=== PATIENT | female | born 1935 | race Caucasian/White ===

== ENCOUNTER 2023-08-12 15:25 | Emergency (ER) | payer MEDICARE, SELFPAY ==
[2023-08-12 15:27] VITALS: BP 138/80
--- NOTE | 2023-08-12 17:22 | ED.GENMED ---
History of Present Illness
General
Chief Complaint: Catheter/Tube Problem
Source: patient
Time Seen by Provider: 08/12/23 16:58
Travel History
Have you had any contact with someone who has COVID-19?: No
Do you have any symptoms of coronavirus? Fever > 100 degrees, chills, cough, shortness of breath, sore throat, loss of taste or smell, muscle aches, or headache?: No
History of Present Illness
History of Present Illness:
87-year-old female present emergency department for evaluation after she had Eng catheter placed at her urologist office yesterday, woke up this morning with no urine within the Eng bag and urine was leaking out of her urethra and on her close.
Patient has no complaints including abdominal pain, nausea, vomiting, fevers or any other concerns.
Past History
Past History
ED Past Medical History: Arrthythmia, CAD, HTN, Hypercholesterolemia, IDDM, Hypothyroidism and Other
ED Past Surgical History: Cardiac, Cholecystectomy, Gynecological, Orthopedic, Urological and Other
Patient has exhibited threatening behavior?: No
Social History
Tobacco: Former smoker
Alcohol: None
Drug: None
Personal:
Living: with family
Review of Systems
Review of Systems
All Other Systems: ROS reviewed and negative except as documented in HPI and ROS
Phy Exam
Physical Exam
Physical Exam:
GENERAL: Alert , in no apparent distress
EYE: conjunctiva clear
Head: Normocephalic atraumatic
NECK: Supple,
ENT: mmm.
LUNGS: no acute respiratory distress
NEUROLOGICAL: Alert and oriented
SKIN: Warm and dry, skin intact.
MUSCULOSKELETAL: well perfused.
PSYCH: Normal and appropriate interaction.
Scores
Heart Failure Risk
Heart Failure Risk Score: Not Applicable
Heart Score for Chest Pain Patients
STEMI patient?: Not applicable
Withdrawal Assessment of Alcohol
Withdrawal Assessment Completed?: Not applicable
Course
Orders/Labs/Results
Orders:
Orders
08/12/23 16:58
Eng Placement- Treatment ONCE
Reason for insertion: Outlet obstruction
Vital Signs
Initial and Last Documented VS:
Initial Vital Signs
Temp Pulse Resp BP Pulse Ox
97.6 F 59 16 138/80 97
08/12/23 15:27 08/12/23 15:27 08/12/23 15:27 08/12/23 15:27 08/12/23 15:27
Last Documented Vital Signs
Temp Pulse Resp BP Pulse Ox
97.6 F 59 16 138/80 97
08/12/23 15:27 08/12/23 15:27 08/12/23 15:27 08/12/23 15:27 08/12/23 15:27
MDM/Problems Addressed
Differential Diagnosis Includes:
Mechanical complication with Eng catheter. I do not have concern for UTI or infectious etiology
MDM/Problems Addressed:
87-year-old female present emergency ferment for evaluation after her Eng catheter was not working properly. We exchanged the Eng catheter without any difficulty. Patient is otherwise asymptomatic. She is stable for discharge and outpatient
follow-up as needed. I
*Pulse Oximetry
Patient hypoxic: no
*Critical Care Note
Total Time (30-74mins, 75-104mins- exclusive of procedures): Not Applicable
ED Attending Note
-
Portions of this chart may have been created with voice recognition software.� Occasional wrong word or��sound alike� substitutions may have occurred due to the inherent limitations of voice recognition software.
Discharge Plan
Departure
Patient Disposition: Home (Routine Discharge)
Date of Disposition: 08/12/23
Time of Disposition: 17:22
Patient with high blood pressure during this ER visit?: No
Discharge Problem:
Encounter for evaluation of Eng catheter
Instructions: How to Care for Your Eng Catheter
Prescriptions:
No Action
polyethylene glycol 3350 17 GRAMS powder in packet
17 grams PO DAILY
ascorbic acid (vitamin C) [Vitamin C] 500 MG tablet
500 mg PO DAILY
cholecalciferol (vitamin D3) 2,000 UNITS tablet
2,000 unit PO DAILY
L.acidoph, paracasei,B. lactis 1 EACH capsule
1 ea PO DAILY
levothyroxine 100 MCG tablet
100 mcg PO DAILY
sertraline 25 MG tablet
25 mg PO DAILY
ferrous sulfate [iron] 325 MG tablet
650 mg PO DAILY
furosemide 40 MG tablet
40 mg PO DAILY
cyanocobalamin (vitamin B-12) 2,000 MCG tablet
2,000 mcg PO DAILY
atorvastatin 40 MG tablet
40 mg PO HS
lorazepam 2 MG tablet
4 mg PO HS
timolol maleate 1 DROP drops
1 drp BOTH EYES BID
amlodipine 5 MG tablet
5 mg PO DAILY
nwshnbwi-lra-qzzt-FA-vit K-lut [Multivitamin Women 50 Plus] 1 EACH tablet
1 ea PO .Q48
carvedilol 6.25 MG tablet
3.125 mg PO BID
acetaminophen [Tylenol Extra Strength] 500 MG tablet
500 mg PO DAILYPRN PRN (Reason: mild pain)
coenzyme Q10 [Co Q-10] 200 MG capsule
200 mg PO DAILY
Urinary Support Complex
1 tab PO DAILY
nitroglycerin 1 EACH patch 24 hour
1 ea TD BID
insulin aspart U-100 [Novolog FlexPen U-100 Insulin] 300 UNITS/3 ML insulin pen
8 units SC DAILYPRN PRN (Reason: high blood sugar)
insulin glargine [Basaglar KwikPen U-100 Insulin] 100 UNIT/ML insulin pen
10 unit SQ HS
Potassium Citrate
99 mg PO DAILY
clopidogrel 75 MG tablet
75 mg PO DAILY Qty: 30 3RF
pantoprazole 40 MG tablet,delayed release (DR/EC)
40 mg PO DAILY Qty: 30 3RF
aspirin [Aspir-Low] 81 MG tablet,delayed release (DR/EC)
81 mg PO DAILY Qty: 0 0RF
phenazopyridine 200 MG tablet
200 mg PO TIDPRN PRN (Reason: bladder spasms) Qty: 10 0RF
cefdinir 300 MG capsule
300 mg PO BID Qty: 13 0RF
Interventions
Interventions:
*Risk Screen - Suicide Last Done: 08/12/23 17:25
*General Assessment Last Done: 08/12/23 17:25
*Neglect/Abuse Screening Last Done: 08/12/23 17:25
ED- Fall Risk Assessment Last Done: 08/12/23 17:25
*ED COVID-19 Vaccine History Last Done: 08/12/23 15:27
*Nursing Disposition Last Done: 08/12/23 17:25
CK-Zpfhoz-Hfdarhirbc Assessment Last Done: 08/12/23 17:24
ED-Female Genitourinary Assessment Last Done: 08/12/23 17:24
== END 2023-08-12 17:26 | disposition home or self-care (01) ==
LOC: EMR 15:25
PROVIDERS: EMERGENCY PHYSICIAN Emergency Medicine; FAMILY PHYSICIAN Family Medicine
DX: Z46.6 Encounter for fitting and adjustment of urinary device (principal); E11.9 Type 2 diabetes mellitus without complications; I25.10 Atherosclerotic heart disease of native coronary artery without angina pectoris; I10 Essential (primary) hypertension; E78.00 Pure hypercholesterolemia, unspecified; E03.9 Hypothyroidism, unspecified; Z87.891 Personal history of nicotine dependence
CPT/HCPCS: 99282; 51702

== ENCOUNTER → 2023-11-07 08:48 | Outpatient (REF) | payer MEDICARE, SELFPAY ==
[2023-11-07 09:49] LABS: % Basophils 1.2 % (0-2); % Eosinophils 6.7 % (0-6); % Immature Granulocytes 0.3 % (0-0.5); % Lymphocytes 20.4 % (20.5-51.1); % Monocytes 7.2 % (1.7-9.3); % Neutrophils 64.2 % (42.2-75.2); Absolute Basophils 0.1 10^3/uL (0-0.2); Absolute Eosinophils 0.5 10^3/uL (0-0.7); Absolute Lymphocytes 1.4 10^3/uL (1.2-3.4); Absolute Monocytes 0.5 10^3/uL (0.1-0.6); Absolute Neutrophils 4.3 10^3/uL (1.4-6.5); Hematocrit 37.4 % (37.0-47.0); Hemoglobin 12.8 g/dL (12.0-16.0); Mean Corp Hgb Conc. 34.2 g/dL (33.0-37.0); Mean Corpuscular Hgb 34.4 pg (27.0-31.0); Mean Corpuscular Volume 100.5 fL (81.0-99.0); Mean Platelet Volume 9.2 fL (7.4-10.4); Nucleated Red Blood Cells % 0 %; Platelet Count 191 10^3/uL (130-400); Red Blood Cell Count 3.72 10^6/uL (4.20-5.40); Red Cell Dist. Width 12.9 % (11.5-14.5); White Blood Cell Count 6.7 10^3/uL (4.8-10.8)
[2023-11-07 11:20] LABS: ALT (SGPT) 33 U/L (0-35); AST (SGOT) 44 U/L (14-36); Albumin 3.8 g/dl (3.5-5.0); Alkaline Phosphatase 120 U/L (38-126); Blood Urea Nitrogen 32 mg/dl (7-17); Calcium 9.4 mg/dl (8.4-10.2); Carbon Dioxide 32 mmol/L (22-30); Chloride 99 mmol/L (98-107); Glucose 103 mg/dl (70-99); Glycohemoglobin (HgbA1c) 7.2 % (4.0-5.6); HDL Cholesterol 49 mg/dl; LDL Cholesterol, Calculated 48 mg/dl; Sodium 138 mmol/L (135-145); Total Bilirubin 0.9 mg/dl (0.2-1.3); Total Cholesterol 133 mg/dl (50-199); Total Protein 6.7 g/dl (6.3-8.2); Triglyceride 184 mg/dl (10-149); Very Low Density Lipoprotein 36 mg/dl (0-30); eGFR 36.64
[2023-11-07 11:49] LABS: TSH 4.83 uIU/ml (0.47-4.68)
== END ==
LOC: REG 08:48
PROVIDERS: ATTENDING PHYSICIAN Family Medicine
DX: E11.22 Type 2 diabetes mellitus with diabetic chronic kidney disease (principal); N18.32 Chronic kidney disease, stage 3b; D63.8 Anemia in other chronic diseases classified elsewhere; E03.9 Hypothyroidism, unspecified
CPT/HCPCS: 36415; 80053; 80061; 83036; 84443; 85025

== ENCOUNTER → 2024-01-05 08:51 | Outpatient (REF) | payer MEDICARE, SELFPAY ==
[2024-01-05 10:35] LABS: Blood Urea Nitrogen 41 mg/dl (7-17); Calcium 9.2 mg/dl (8.4-10.2); Carbon Dioxide 32 mmol/L (22-30); Chloride 99 mmol/L (98-107); Glucose 122 mg/dl (70-99); Potassium 4.3 mmol/L (3.5-5.1); Sodium 138 mmol/L (135-145); eGFR 31.21
[2024-01-05 10:45] LABS: NT-proBNP 597 pg/ml
== END ==
LOC: REG 08:51
PROVIDERS: ATTENDING PHYSICIAN Internal Medicine Cardiovascular Disease; FAMILY PHYSICIAN Family Medicine
DX: I50.32 Chronic diastolic (congestive) heart failure (principal)
CPT/HCPCS: 36415; 80048; 83880

== ENCOUNTER → 2024-05-08 10:02 | Outpatient (REF) | payer MEDICARE, SELFPAY ==
[2024-05-08 12:12] LABS: ALT (SGPT) 27 U/L (0-35); AST (SGOT) 40 U/L (14-36); Albumin 3.5 g/dl (3.5-5.0); Alkaline Phosphatase 121 U/L (38-126); Direct Bilirubin 0.1 mg/dl (0.0-0.4); HDL Cholesterol 45 mg/dl; LDL Cholesterol, Calculated 51 mg/dl; Total Bilirubin 0.8 mg/dl (0.2-1.3); Total Cholesterol 130 mg/dl (50-199); Total Protein 6.3 g/dl (6.3-8.2); Triglyceride 170 mg/dl (10-149); Very Low Density Lipoprotein 34 mg/dl (0-30)
[2024-05-08 12:42] LABS: TSH 2.03 uIU/ml (0.47-4.68)
[2024-05-08 12:45] LABS: Microalbumin/creatinine Ratio 298.2 mg/g
[2024-05-08 12:58] LABS: Glycohemoglobin (HgbA1c) 6.7 % (4.0-5.6)
== END ==
LOC: REG 10:02
PROVIDERS: ATTENDING PHYSICIAN Family Medicine
DX: E11.22 Type 2 diabetes mellitus with diabetic chronic kidney disease (principal); E03.9 Hypothyroidism, unspecified
CPT/HCPCS: 36415; 80061; 80076; 82043; 82570; 83036; 84443

== ENCOUNTER 2024-07-09 18:22 | Inpatient (IN) | payer MEDICARE, SELFPAY ==
[2024-07-09] VITALS (12 sets, daily range): BP systolic 95–173; BP diastolic 41–84; BMI 43.1; BMI 42.1
[2024-07-09 13:05] LABS: % Basophils 0.9 % (0-2); % Eosinophils 4.9 % (0-6); % Immature Granulocytes 0.3 % (0-0.5); % Lymphocytes 21.1 % (20.5-51.1); % Monocytes 6.6 % (1.7-9.3); % Neutrophils 66.2 % (42.2-75.2); Absolute Basophils 0.1 10^3/uL (0-0.2); Absolute Eosinophils 0.3 10^3/uL (0-0.7); Absolute Lymphocytes 1.5 10^3/uL (1.2-3.4); Absolute Monocytes 0.5 10^3/uL (0.1-0.6); Absolute Neutrophils 4.6 10^3/uL (1.4-6.5); Hematocrit 36.2 % (37.0-47.0); Mean Corp Hgb Conc. 33.1 g/dL (33.0-37.0); Mean Corpuscular Hgb 33.8 pg (27.0-31.0); Mean Platelet Volume 9.3 fL (7.4-10.4); Nucleated Red Blood Cells % 0 %; Platelet Count 299 10^3/uL (130-400); Red Blood Cell Count 3.55 10^6/uL (4.20-5.40)
--- NOTE | 2024-07-09 13:05 | ED.GENMED ---
History of Present Illness
General
Chief Complaint: Weakness
Source: patient
Exam Limitations: none
Time Seen by Provider: 07/09/24 12:54
Nursing documentation reviewed up to this point in time: agreed with
History of Present Illness
History of Present Illness:
Patient is an 88-year-old female with history hypertension, hyperlipidemia, CHF, CAD s/p stents, indwelling Eng catheter presenting to the emergency department via EMS for evaluation of generalized weakness. Patient states she has been noticing
gradually increasing weakness for the past few days however today noted significant worsening. Patient states she was having difficulties getting out of bed and ambulating due to weakness. She also states she felt lightheadedness as if she might
pass out. Patient also notes increasing dyspnea when going up stairs and walking. Patient denies any associated chest pain, abdominal pain, fevers, lower extremity pain.
Of note�patient states she has been dealing with some constipation for which she took qdsj-rav-cglcjgq stool softeners leading to diarrhea over the past 2 days. However this seemed to resolve. No nausea or vomiting
Patient does have a history of CHF and takes 80 mg of Lasix daily. No recent changes in dosage.
Past History
Past History
ED Past Medical History: Arrthythmia, CAD, HTN, Hypercholesterolemia, IDDM, Hypothyroidism and Other
ED Past Surgical History: Cardiac, Cholecystectomy, Gynecological, Orthopedic, Urological and Other
Patient has exhibited threatening behavior?: No
Social History
Tobacco: Former smoker
Alcohol: None
Drug: None
Personal:
Living: with family
Review of Systems
Review of Systems
Allergies reviewed?: Yes
All Other Systems: ROS reviewed and negative except as documented in HPI and ROS
Phy Exam
Physical Exam
Physical Exam:
Vitals: Hypertensive, otherwise vital signs are stable. Afebrile
General: Patient is in no apparent distress.
Skin: Warm and dry, no rashes or lesions
Head: Normocephalic, atraumatic
Eyes: Sclera nonicteric. EOMs intact. No nystagmus.
Throat: Protecting airway
Neck: Normal ROM, no cervical spine tenderness, no meningismus. No JVD
Cardiac: Regular rate and rhythm, no murmurs.
Pulm: Normal respiratory effort, no wheezes, rales, rhonchi heard on exam. O2 saturation 97 on room
Abdomen: Abdomen soft. No abdominal tenderness.
Extremities: No evidence of cyanosis or edema. Palpable distal pulses bilaterally.
Neuro: AAOx3. Grossly intact.
Psychiatric: Normal affect.
Course
Orders/Labs/Results
Orders:
Orders
07/09/24 12:43
Electrocardiogram (*1) Urgent
Reason for Study: Chest Pain
EKG- Treatment ONCE
07/09/24 12:47
Complete Blood Count/With Diff Urgent
Comprehensive Metabolic Panel Urgent
NT-proBNP Urgent
Comment: ADD ON
Troponin I Urgent
07/09/24 12:53
Urinalysis Reflex To Culture Urgent
Date Specimen was Collected: 07/09/24
Time Specimen was Collected: 12:51
Urine Microscopic Reflex Cult Urgent
Urine Culture Urgent
VISHAL Source: U
Specimen Description:
Date Specimen was Collected: 07/09/24
Time Specimen was Collected: 12:51
07/09/24 13:03
Add On- LAB Urgent
Tests Added?: pro-bnp
07/09/24 13:04
CR Chest - 2 Views Urgent
Comment:
Reason For Exam: SOB
07/09/24 13:22
pacemaker [Interrogate Pacemaker- Treatment] ONCE
07/09/24 14:42
COVID-19 Antigen Urgent
Source: Nasal Swab
Influenza A+B Rapid Molecular Urgent
VISHAL Source: Nasal Swab
Specimen Description:
07/09/24 15:30
CefTRIAXone [Rocephin] 1,000 mg IV NOW STA
Furosemide [Lasix] 40 mg IV NOW STA
Potassium Chloride [KCl] 40 meq PO NOW STA
07/09/24 15:45
Electrocardiogram (*1) Urgent
Reason for Study: Shortness of Breath
EKG- Treatment ONCE
07/09/24 15:52
Troponin I Urgent
07/09/24 16:39
Admit/Transfer Patient As Directed
Co-Sign Provider:
Level of Care: Inpatient admission
Assign to:: Telemetry
Physician / Group: [email or web address]
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
Reason for Telemetry: Acute Heart Failure
Date to Stop Telemetry: 07/12/24
Time to Stop Telemetry: 11:00
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
Expected length of stay greater than two midnights?: Yes
ELOS- Estimated Length of Stay in days: 4
I certify the patient meets the requirements for IP care: Yes
07/09/24 16:48
Code Status As Directed
Resuscitation Status: Full Code
07/12/24 11:00
DC Protocol for Telemetry ONCE
Abnormal Lab Results
07/09/24 07/09/24
12:47 12:53
RBC 3.55 L 10^6/uL
(4.20-5.40)
Hct 36.2 L %
(37.0-47.0)
MCV 102.0 H fL
(81.0-99.0)
MCH 33.8 H pg
(27.0-31.0)
Potassium 3.4 L mmol/L
(3.5-5.1)
Carbon Dioxide 36 H mmol/L
(22-30)
BUN 57 H mg/dl
(7-17)
Creatinine 1.6 H mg/dL
(0.6-1.0)
Glucose 111 H mg/dl
(70-99)
AST 297 H U/L
(14-36)
ALT 208 H U/L
(0-35)
Alkaline Phosphatase 673 H U/L
(38-126)
Albumin 3.4 L g/dl
(3.5-5.0)
Ur Occult Blood Reflex 3+ A
(Negative)
Leukocyte Esterase Rfl 2+ A
(Negative)
Urine WBC (Reflex) >100 A /HPF
(0-5)
Urine Albumin (Reflex) 1+ A
(Neg - Trace)
07/09/24 12:47
07/09/24 12:47
Vital Signs
Initial and Last Documented VS:
Initial Vital Signs
Temp Pulse Resp BP Pulse Ox
98.7 F 65 18 160/68 97
07/09/24 12:36 07/09/24 12:36 07/09/24 12:36 07/09/24 12:36 07/09/24 12:36
Last Documented Vital Signs
Temp Pulse Resp BP Pulse Ox
98.7 F 66 16 141/53 96
07/09/24 12:36 07/09/24 20:00 07/09/24 20:00 07/09/24 20:00 07/09/24 20:00
MDM/Problems Addressed
Differential Diagnosis Includes:
Not limited to: Viral illness, acute dehydration, acute CHF exacerbation, UTI, cardiac arrhythmia, ACS
MDM/Problems Addressed:
88-year-old female presenting with significant weakness. Also with worsening dyspnea on exertion. No fevers, chest pain, abdominal pain. No recent weight gain. Patient is mildly hypertensive, otherwise stable vital signs. She is not hypoxic.
Physical exam as above. Differential broad although possible viral illness versus acute CHF exacerbation versus UTI given chronic indwelling Eng catheter. Also possibly acute dehydration secondary to recent diarrhea. Lower suspicion for ACS.
Will check basic lab, troponin, proBNP, urinalysis. Will obtain viral test x-ray. Will interrogate pacemaker. Anticipate admission.
Update: Labs reviewed. Chronic renal insufficiency noted�which appears at patient's baseline. Transaminitis noted�possibly secondary to fluid overload. BNP of 1110. Troponin negative. Urine with greater than 100 WBCs and 2+ leukocyte
esterase�concern for UTI. Viral swabs negative. EKG shows paced rhythm without any acute ischemic changes. Chest x-ray reviewed by me without any significant pulmonary edema or acute findings. Given patient's significant weakness and UTI�will
require admission. Possible colonization given indwelling Eng catheter although will start empirically on Rocephin pending culture data. Given symptomatic dyspnea and elevated BNP�will give 40 IV Lasix. Patient will be admitted to hospitalist
for further management-accepted in stable condition. Case discussed with attending physician.
Chronic conditions affecting care:
Hypertension, CHF, neurogenic bladder with chronic indwelling Eng catheter
Acute Exacerbation and/or Progression of Chronic Illness:
Acutely hypertensive
*Radiology
Radiology exam reviewed: preliminary read by ED provider (Chest x-ray reviewed by me-no significant pulmonary edema, pneumonia, or pneumothorax)
*Pulse Oximetry
Patient hypoxic: no
*EKG
Interpreted by ED Provider?: Yes
EKG Intrepretation Date: 07/09/24
Interpretation: abnormal
Comparison EKG: changes noted
Heart Rate: 64
Rate: normal
Rhythm: other (Atrial paced)
[place]: left axis deviation
Interval: normal interval
QRS Pattern: normal QRS
Ischemia: non-specific ST changes
*[employer] Interpretation
Rate: normal
Interpretation: normal
Heart Rate: 65
Rhythm: sinus
*Critical Care Note
Total Time (30-74mins, 75-104mins- exclusive of procedures): Not Applicable
Patient Management
Discussion with other providers: Hospitalist
Escalation/DeEscalation of care consider admission/obs:
Admit for generalized weakness secondary to likely UTI versus CHF exacerbation
ED Attending Note
-
Portions of this chart may have been created with voice recognition software.� Occasional wrong word or��sound alike� substitutions may have occurred due to the inherent limitations of voice recognition software.
Discharge Plan
Departure
Patient Disposition: Admit
Date of Disposition: 07/09/24
Time of Disposition: 15:34
Presentation/result/management discussed w/ accepting MD/DO: Hospitalist
Discharge Problem:
Weakness, Acute UTI, Dyspnea on exertion
Interventions
Interventions:
*Risk Screen - Suicide Last Done: 07/09/24 12:36
*General Assessment Last Done: 07/09/24 12:36
*Neglect/Abuse Screening Last Done: 07/09/24 12:36
ED- Fall Risk Assessment Last Done: 07/09/24 12:44
*ED COVID-19 Vaccine History Last Done: 07/09/24 12:44
ED- Cardiac Assessment Last Done: 07/09/24 12:44
ED- Neurological Assessment Last Done: 07/09/24 12:44
ED- Pulmonary Assessment Last Done: 07/09/24 12:44
[2024-07-09 13:11] LABS: Urine Albumin 1+ (Neg - Trace); Urine Bilirubin Negative (Negative); Urine Character Very Cloudy (Clear); Urine Color Yellow; Urine Glucose Negative (Negative); Urine Ketone Negative (Negative); Urine Leukocyte 2+ (Negative); Urine Nitrite Negative (Negative); Urine Occult Blood 3+ (Negative); Urine Urobilinogen Negative (Neg - 1+); Urine pH 6.5 (5.0-9.0)
[2024-07-09 13:16] LABS: ALT (SGPT) 208 U/L (0-35); AST (SGOT) 297 U/L (14-36); Albumin 3.4 g/dl (3.5-5.0); Alkaline Phosphatase 673 U/L (38-126); Blood Urea Nitrogen 57 mg/dl (7-17); Calcium 8.8 mg/dl (8.4-10.2); Carbon Dioxide 36 mmol/L (22-30); Chloride 99 mmol/L (98-107); Estimated Creatinine Clearance 27 ml/min; Glucose 111 mg/dl (70-99); Potassium 3.4 mmol/L (3.5-5.1); Sodium 141 mmol/L (135-145); Total Bilirubin 1.3 mg/dl (0.2-1.3); Total Protein 6.6 g/dl (6.3-8.2); eGFR 31.21
[2024-07-09 13:26] LABS: Troponin I 0.024 ng/ml
[2024-07-09 13:37] LABS: Urine White Cell >100 /HPF (0-5)
[2024-07-09 13:59] LABS: NT-proBNP 1110 pg/ml
[2024-07-09 15:20] LABS: COVID-19 Antigen Negative (Negative)
[2024-07-09] MEDS: KCL 40 MEQ PO (15:53)
[2024-07-09] MEDS: LASIX 40 MG IV (15:55)
[2024-07-09] MEDS: ROCEPHIN 1000 MG IV (15:58)
--- NOTE | 2024-07-09 16:21 | HPS.HSE ---
Family Physician
-
Family Physician: Amairani Ramírez
Chief Complaint
-
Generalized weakness unable to complete ADLs at home
History of Present Illness
88F HX hypertension, hyperlipidemia, CHF, CAD s/p stents, indwelling Gilbert catheter seen at ER
- evaluation of generalized progressive weakness
- she was having difficulties getting out of bed and ambulating due to weakness
- felt lightheadedness as if she might pass out.
- increasing dyspnea when going up stairs and walking.
- HX CHF and takes 80 mg of Lasix daily. No recent changes in dosage.
Of note: some constipation for which she took xnka-jla-epwaiid stool softeners leading to diarrhea over the past 2 days. However this seemed to resolve. No nausea or vomiting
ROS:
- Patient denies any associated chest pain, abdominal pain, fevers, lower extremity pain.
Medical History
Past Medical History
Past Medical History: Reports CAD, CHF, HTN, Hypercholesterolemia, Hypothyroidism, IDDM and Psychiatric (depression )
Past Surgical History: Reports Other
Additional Past Surgical History:
Cardiac, Cholecystectomy, Gynecological, Orthopedic, Urological and Other
Social History
Tobacco: Former Smoker
Alcohol: None
Personal:
Living: With Family
Family History
Family History: Not pertinent
Allergies / Home Medications
Allergies reflects when Allergies were last updated in [facility].
Home Medications with original date entered in [facility]
Allergy/Medication List:
Allergies
Allergy/AdvReac Type Severity Reaction Status Date / Time
Penicillins Allergy Unknown Verified 06/03/21 18:51
venom-honey bee Allergy Swelling Verified 06/03/21 18:51
[bee venom (honey bee)]
Home Medications
ascorbic acid (vitamin C) 500 mg tablet (Vitamin C) 500 mg PO DAILY Supplement 04/30/15
cholecalciferol (vitamin D3) 50 mcg (2,000 unit) tablet 2,000 unit PO DAILY Supplement 04/30/15
polyethylene glycol 3350 17 gram oral powder packet 17 grams PO DAILYPRN PRN constipation 04/30/15
ferrous sulfate 325 mg (65 mg iron) tablet (iron) 650 mg PO DAILY Supplement 12/10/15
acetaminophen 500 mg tablet (Tylenol Extra Strength) 500 mg PO DAILYPRN PRN mild pain 09/25/19
coenzyme Q10 200 mg capsule (Co Q-10) 200 mg PO DAILY Supplement 11/14/19
insulin aspart U-100 100 unit/mL (3 mL) subcutaneous pen (Novolog FlexPen U-100 Insulin aspart) 0 sliding scale dose SC AC 11/14/19
insulin glargine 100 unit/mL (3 mL) subcutaneous pen (Basaglar KwikPen U-100 Insulin) 14 unit SQ HS Diabetes 11/14/19
potassium 99 mg tablet 99 mg PO DAILY Supplement ##0 11/14/19
Lactobac no.2-Bifidobac no.1-S. thermo 112.5 billion cell capsule (Visbiome) 1 cap PO DAILY 07/09/24
aspirin 81 mg tablet,delayed release 81 mg PO DAILY 07/09/24
atorvastatin 80 mg tablet 80 mg PO HS 07/09/24
cyanocobalamin (vitamin B-12) 1,000 mcg tablet 1,000 mcg PO DAILY 07/09/24
docusate sodium 100 mg capsule (Colace) 100 mg PO DAILYPRN PRN constipation 07/09/24
furosemide 80 mg tablet 80 mg PO HS 07/09/24
levothyroxine 125 mcg tablet 125 mcg PO DAILY 07/09/24
magnesium oxide 300 mg PO HS 07/09/24
melatonin 3 mg tablet 3 mg PO HS 07/09/24
metoprolol tartrate 25 mg tablet 25 mg PO BID 07/09/24
pantoprazole 40 mg tablet,delayed release 40 mg PO HS 07/09/24
sertraline 50 mg tablet 50 mg PO DAILY 07/09/24
therapeutic multivitamin 1 tab PO DAILY 07/09/24
timolol 0.5 % eye drops 1 drp BOTH EYES BID 07/09/24
vitamins A,C,P-pxec-eefxfg 4,296 mcg-226 mg-90 mg capsule (PreserVision AREDS) 1 cap PO BID 07/09/24
Review of Systems
-
EENT: Reports No Symptoms
Respiratory: Reports See HPI
Cardiac: Reports No Symptoms
Abdomen/GI: Reports No Symptoms
: Reports See HPI
Musculoskeletal: Reports No Symptoms
Skin: Reports No Symptoms
Neurological: Reports No Symptoms
Endocrine: Reports No Symptoms
Hematologic/Lymphatic: Reports No Symptoms
Psych: Reports No Symptoms
Physical Exam
Vital Signs
Vital Signs
Temp Pulse Resp BP Pulse Ox
98.7 F 66 15 139/52 99
07/09/24 12:36 07/09/24 16:00 07/09/24 16:00 07/09/24 16:00 07/09/24 15:49
Physical Exam
General: No Apparent Distress and Other (hypertensive )
HEENT: NormoCephalic, Moist mucous membranes and Atraumatic
Respiratory: Clear
Cardiac: S1/S2
GI: Soft, Non Tender, Non Distended and Normal Bowel Sounds
Rectal: Deferred by Provider
Musculoskeletal: No Clubbing, No Cyanosis and No Edema
Skin: No Rash
Neuro: Nonfocal/grossly intact
Laboratory Results
-
07/09/24 12:47
07/09/24 12:47
Laboratory Results
Total Bilirubin 1.3 mg/dl (0.2-1.3) 07/09/24 12:47
AST 297 U/L (14-36) H 07/09/24 12:47
ALT 208 U/L (0-35) H 07/09/24 12:47
Alkaline Phosphatase 673 U/L (38-126) H 07/09/24 12:47
Troponin I 0.024 ng/ml 07/09/24 12:47
Data Reviewed
-
Diagnostic Radiology: Report Reviewed by me
Medical Tests (Nuc Med, Echo, EKG etc): Report Reviewed by me
Lab Data: Labs Reviewed by me
Impression/Plan
-
Data
Laboratory Tests
01/05/24 07/09/24 07/09/24
09:16 12:47 12:53
Potassium 3.4 L
Carbon Dioxide 36 H
BUN 57 H
Creatinine 1.6 H 1.6 H
eGFR 31.21 31.21
AST 297 H
ALT 208 H
Alkaline Phosphatase 673 H
Xry-J-Emhnoveasmx Pept 597 1110
Urine Clarity Very cloudy
Leukocyte Esterase Rfl 2+ A
Urine WBC (Reflex) >100 A
CXR: NAD
06/03/22 TTE
1. Left ventricle: Normal size and function with mild concentric LVH. No
regional wall motion abnormalities. EF 55-60%.
2. Right ventricle: Normal
3. Atria: Normal
4. Mitral valve: Trace mitral regurgitation
5. Aortic valve: A 23 mm sapient valve is in the aortic position with a mean
gradient of 11 mmHg. Mild paravalvular aortic insufficiency
6. Tricuspid valve: Mild tricuspid regurgitation. Estimated pulmonary artery
systolic pressures are 39 mmHg
7. When compared to the most recent echocardiogram from 03/26/2020 there has
been no significant change
EKG
Atrial-paced rhythm with prolonged AV conduction
LEFT AXIS DEVIATION
POSSIBLE ANTERIOR INFARCT (CITED ON OR BEFORE 02-DEC-2019)
ABNORMAL ECG
WHEN COMPARED WITH ECG OF 09-JUL-2024 12:49,
NO SIGNIFICANT CHANGE WAS FOUND
NO PRIOR hospitalist admission:
ASSESSMENT & PLAN
CAUTI
+ indwelling gilbert with UA concerning for infection.
- agree with IV CFTZ
- f/u UCx
Acute HF , HX LVEF 55-60%.
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
- IV Lasix 40 daily
- c/w Carvedilol
- daily IOs , wt
- daily BMP
NICKY ? cardiorenal syndrome plus UTI
HX CKD 3b
- f/u Cr with diuresis
Prx AF
- Atrial-paced rhythm with prolonged AV conduction
- c/w ASA
- c/.w Carvedilol
CAD,
HLD
- on Atorvastatin and ASA
essential HTN
- on Carvedilol
IDDM
- c/w Lantus
- add ISS low
Hypothyroid
- on LT4
HX depression
- c/w Sertraline
Depression
- c/w Sertraline
-c/w
Morbid obesity
DVT Px: SQH
Code: Full
IP TLM
[2024-07-09 16:46] LABS: Troponin I 0.027 ng/ml
[2024-07-09 21:52] LABS: Glucose - Point of Care 65 mg/dl (70-99)
[2024-07-09] MEDS: HEPARIN 5000 UNITS SC (21:54)
[2024-07-09] MEDS: TYLENOL 500 MG PO (21:55)
[2024-07-09] MEDS: MELATONIN 3 MG PO (21:56)
[2024-07-09] MEDS: PROTONIX 40 MG PO (21:56)
[2024-07-09] MEDS: LIPITOR 80 MG PO (21:56)
[2024-07-09] MEDS: LOPRESSOR 25 MG PO (21:58)
[2024-07-09 22:20] LABS: Glucose - Point of Care 98 mg/dl (70-99)
[2024-07-09] MEDS: LANTUS SC (23:00)
--- NOTE | 2024-07-09 23:08 | PTCARENOTE ---
Patient arrived to unit via stretcher with dx of Cauti,Acute on Chronic HFpEF, NICKY on CKD. Patient AAOX3. Pleasant and cooperative with care. Eng cath in place with cloudy yellow urine. Bed alarm applied. BS 65, Juice and crackers given. Patient
denies any symptoms. BS rechecked about 15 minutes later with result of 98. Patient refused HS lantus. Call barillas within reach. Oriented to unit. Patient able to turn self in bed. Patient educated on turning frequently to prevent pressure sores.
[2024-07-10] VITALS (8 sets, daily range): BP systolic 119–175; BP diastolic 45–69; PULSE 68–75; BMI 43.0
[2024-07-10 03:15] LABS: Glucose - Point of Care 73 mg/dl (70-99)
[2024-07-10] MEDS: SYNTHROID 125 MCG PO (06:13)
[2024-07-10 07:19] LABS: Glucose - Point of Care 121 mg/dl (70-99)
[2024-07-10] MEDS: NOVOLOG FLEXPEN-LOW RESISTANCE SC (07:28)
[2024-07-10] MEDS: HEPARIN 5000 UNITS SC ×2 (08:09→20:51)
[2024-07-10] MEDS: ZOLOFT 50 MG PO (08:10)
[2024-07-10] MEDS: ASPIR LOW (ENTERIC COATED) 81 MG PO (08:10)
[2024-07-10 08:11] LABS: Hematocrit 35.5 % (37.0-47.0); Mean Corp Hgb Conc. 33.8 g/dL (33.0-37.0); Mean Corpuscular Hgb 34.2 pg (27.0-31.0); Mean Corpuscular Volume 101.1 fL (81.0-99.0); Mean Platelet Volume 9.5 fL (7.4-10.4); Platelet Count 290 10^3/uL (130-400); Red Blood Cell Count 3.51 10^6/uL (4.20-5.40); Red Cell Dist. Width 14.3 % (11.5-14.5); White Blood Cell Count 10.3 10^3/uL (4.8-10.8)
[2024-07-10] MEDS: LOPRESSOR 25 MG PO ×2 (08:11→20:51)
[2024-07-10] MEDS: DESENEX/MITRAZOL/ZEASORB 1 APPLIC TOPICAL ×2 (08:12→20:50)
[2024-07-10] MEDS: LASIX 40 MG IV (08:12)
[2024-07-10 08:39] LABS: ALT (SGPT) 256 U/L (0-35); AST (SGOT) 501 U/L (14-36); Albumin 3.2 g/dl (3.5-5.0); Alkaline Phosphatase 744 U/L (38-126); Blood Urea Nitrogen 51 mg/dl (7-17); Calcium 8.8 mg/dl (8.4-10.2); Carbon Dioxide 34 mmol/L (22-30); Chloride 98 mmol/L (98-107); Estimated Creatinine Clearance 27 ml/min; Glucose 125 mg/dl (70-99); Potassium 3.7 mmol/L (3.5-5.1); Sodium 141 mmol/L (135-145); Total Bilirubin 1.6 mg/dl (0.2-1.3); Total Protein 6.3 g/dl (6.3-8.2); eGFR 31.21
[2024-07-10 11:55] LABS: Glucose - Point of Care 155 mg/dl (70-99)
[2024-07-10] MEDS: NOVOLOG FLEXPEN-LOW RESISTANCE 1 UNITS SC (13:19)
--- NOTE | 2024-07-10 14:18 | CM ---
CM reviewed chart, patient seen bedside. TT to Hospitalist for PT orders. Patient reports she resides with her daughter in a two story home, two steps to enter, 13 steps to second floor. Patient reports walker at home, denies VN, reports history of
[facility] in past. Patient confirms PCP Amairani Ramírez, pharmacy [facility], confirms prescription coverage. CM will follow for all discharge planning needs.
Plan; home with VN vs SNF, watch for PT evals.
[2024-07-10] MEDS: STERILE WATER FOR INJECTION 10 ML IV (15:52)
[2024-07-10] MEDS: ROCEPHIN 1000 MG IV (15:53)
[2024-07-10 16:32] LABS: Glucose - Point of Care 212 mg/dl (70-99)
[2024-07-10] MEDS: NOVOLOG FLEXPEN-LOW RESISTANCE 2 UNITS SC (16:37)
--- NOTE | 2024-07-10 18:00 | W.PN.HOSP.TC ---
Today's Communication/Plan
-
await Ur C&S
Assessment / Plan
Assessment / Plan
06/03/22 TTE
1. Left ventricle: Normal size and function with mild concentric LVH. No
regional wall motion abnormalities. EF 55-60%.
2. Right ventricle: Normal
3. Atria: Normal
4. Mitral valve: Trace mitral regurgitation
5. Aortic valve: A 23 mm sapient valve is in the aortic position with a mean
gradient of 11 mmHg. Mild paravalvular aortic insufficiency
6. Tricuspid valve: Mild tricuspid regurgitation. Estimated pulmonary artery
systolic pressures are 39 mmHg
7. When compared to the most recent echocardiogram from 03/26/2020 there has
been no significant change
EKG
Atrial-paced rhythm with prolonged AV conduction
LEFT AXIS DEVIATION
POSSIBLE ANTERIOR INFARCT (CITED ON OR BEFORE 02-DEC-2019)
ABNORMAL ECG
WHEN COMPARED WITH ECG OF 09-JUL-2024 12:49,
NO SIGNIFICANT CHANGE WAS FOUND
CXR: NAD
NO PRIOR hospitalist admission:
ASSESSMENT & PLAN
CAUTI
+ indwelling gilbert with UA concerning for infection.
- agree with IV CFTZ
- f/u UCx
GmNeg Bacilli
Acute HF , HX LVEF 55-60%.
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
- IV Lasix 40 daily
- c/w Carvedilol
- daily IOs , wt
- daily BMP
NICKY ? cardiorenal syndrome plus UTI
HX CKD 3b
- f/u Cr with diuresis
Prx AF
- Atrial-paced rhythm with prolonged AV conduction
- c/w ASA
- c/.w Carvedilol
elevated LFT's
?due to passive congestion
will follow
CAD,
HLD
- on Atorvastatin and ASA
essential HTN
- on Carvedilol
IDDM
- c/w Lantus
- add ISS low
a1c 6.7% on 05/08/24
Hypothyroid
- on LT4
HX depression
- c/w Sertraline
Morbid obesity
DVT Px: SQH
Code: Full
IP TLM
Anticipated Discharge: > 48 hours
Subjective/Interval History
-
Date of Service: July 10, 2024
Awake, alert, feeling better
Objective Data
-
Labs:
Laboratory Results
07/10/24
07:12
WBC 10.3
Hgb 12.0
Hct 35.5 L
Plt Count 290
Sodium 141
Potassium 3.7
Chloride 98
Carbon Dioxide 34 H
BUN 51 H
Creatinine 1.6 H
Glucose 125 H
Calcium 8.8
Total Bilirubin 1.6 H
AST 501 H*
ALT 256 H
Alkaline Phosphatase 744 H
Vital Signs:
Vital Signs
Temp Pulse Resp BP Pulse Ox
99.4 F 67 22 119/58 96
07/10/24 15:00 07/10/24 15:00 07/10/24 15:00 07/10/24 15:00 07/10/24 15:00
I&O
07/09/24 07/10/24 07/11/24
06:59 06:59 06:59
Output Total 850 / 850
Balance -850 / -850
Review of Systems
-
History Source: Patient and Coordinated Provider
Constitutional: Denies Fever
EENT: Reports No Symptoms Reported
Respiratory: Reports No Symptoms
Cardiac: Reports No Symptoms
Abdomen/GI: Reports No Symptoms
Genitourinary: Reports UTI and Other (chronic gilbert)
Physical Exam
-
General: Well Developed, Well Nourished, No Apparent Distress and Morbidly Obese
HEENT: Normocephalic, Atraumatic and Moist Mucous Membranes
Respiratory: Clear to Auscultation; Negative Wheezes, Rales or Rhonchi
Cardiac: Regular Rhythm and S1/S2
GI: Soft, Nontender and Nondistended
Musculoskeletal: No Clubbing, No Cyanosis and No Edema
[2024-07-10] MEDS: PROTONIX 40 MG PO (20:52)
[2024-07-10] MEDS: LIPITOR 80 MG PO (20:52)
[2024-07-10] MEDS: MELATONIN 3 MG PO (20:58)
[2024-07-10 21:59] LABS: Glucose - Point of Care 143 mg/dl (70-99)
[2024-07-10] MEDS: LANTUS 0.14 UNITS SC (22:13)
[2024-07-11 03:27] VITALS: BP 130/65
[2024-07-11] MEDS: SYNTHROID 125 MCG PO (05:11)
[2024-07-11 06:00] VITALS: BMI 43.6
[2024-07-11] MEDS: HEPARIN 5000 UNITS SC ×2 (07:55→20:42)
[2024-07-11] MEDS: ASPIR LOW (ENTERIC COATED) 81 MG PO (07:55)
[2024-07-11] MEDS: LOPRESSOR 25 MG PO ×2 (08:00→20:43)
[2024-07-11] MEDS: DESENEX/MITRAZOL/ZEASORB 1 APPLIC TOPICAL ×2 (08:01→20:41)
[2024-07-11] MEDS: LASIX 40 MG IV (08:01)
[2024-07-11] MEDS: ZOLOFT 50 MG PO (08:04)
[2024-07-11] MEDS: NOVOLOG FLEXPEN-LOW RESISTANCE SC ×3 (08:18→17:17)
[2024-07-11 08:21] LABS: Glucose - Point of Care 95 mg/dl (70-99)
[2024-07-11 08:37] LABS: % Basophils 0.8 % (0-2); % Eosinophils 5.1 % (0-6); % Immature Granulocytes 0.4 % (0-0.5); % Lymphocytes 18.5 % (20.5-51.1); % Monocytes 7.3 % (1.7-9.3); % Neutrophils 67.9 % (42.2-75.2); Absolute Basophils 0.1 10^3/uL (0-0.2); Absolute Eosinophils 0.4 10^3/uL (0-0.7); Absolute Lymphocytes 1.5 10^3/uL (1.2-3.4); Absolute Monocytes 0.6 10^3/uL (0.1-0.6); Absolute Neutrophils 5.4 10^3/uL (1.4-6.5); Hemoglobin 10.9 g/dL (12.0-16.0); Mean Corpuscular Hgb 33.2 pg (27.0-31.0); Mean Corpuscular Volume 100.6 fL (81.0-99.0); Mean Platelet Volume 9.6 fL (7.4-10.4); Nucleated Red Blood Cells % 0 %; Platelet Count 270 10^3/uL (130-400); Red Blood Cell Count 3.28 10^6/uL (4.20-5.40); White Blood Cell Count 7.9 10^3/uL (4.8-10.8)
[2024-07-11 09:14] LABS: Albumin 3.1 g/dl (3.5-5.0); Alkaline Phosphatase 699 U/L (38-126); Blood Urea Nitrogen 49 mg/dl (7-17); Calcium 8.5 mg/dl (8.4-10.2); Carbon Dioxide 34 mmol/L (22-30); Chloride 96 mmol/L (98-107); Estimated Creatinine Clearance 27 ml/min; Glucose 90 mg/dl (70-99); Potassium 3.7 mmol/L (3.5-5.1); Sodium 138 mmol/L (135-145); Total Bilirubin 1.5 mg/dl (0.2-1.3); Total Protein 6.2 g/dl (6.3-8.2); eGFR 31.21
[2024-07-11 09:46] LABS: ALT (SGPT) 732 U/L (0-35); AST (SGOT) 1148 U/L (14-36)
[2024-07-11 11:46] LABS: Glucose - Point of Care 126 mg/dl (70-99)
[2024-07-11 12:10] VITALS: BP 157/70
--- NOTE | 2024-07-11 14:26 | CM ---
CM reviewed chart, patient seen bedside, discussed PT recommendation of SNF. Patient is not agreeable to rehab, reports she would like to do outpatient PT/OT. CM discussed VN referral, patient not agreeable to have VN in home. CM offered to discuss
with patients daughter, patient reports daughter should be in to visit, CM will return to discuss recommendations. CM will continue to follow for all discharge planning needs.
Plan; PT rec SNF, patient not agreeable, will continue to discuss
[2024-07-11 15:00] VITALS: BP 141/78
[2024-07-11] MEDS: STERILE WATER FOR INJECTION 10 ML IV (16:08)
[2024-07-11] MEDS: ROCEPHIN 1000 MG IV (16:09)
--- NOTE | 2024-07-11 16:32 | PTCARENOTE ---
Eng changed per MD order. 16fr.
[2024-07-11 17:16] LABS: Glucose - Point of Care 148 mg/dl (70-99)
--- NOTE | 2024-07-11 17:55 | W.PN.HOSP.TC ---
Today's Communication/Plan
-
LIVER US
stop Lipitor
follow labs
Assessment / Plan
Assessment / Plan
06/03/22 TTE
1. Left ventricle: Normal size and function with mild concentric LVH. No
regional wall motion abnormalities. EF 55-60%.
2. Right ventricle: Normal
3. Atria: Normal
4. Mitral valve: Trace mitral regurgitation
5. Aortic valve: A 23 mm sapient valve is in the aortic position with a mean
gradient of 11 mmHg. Mild paravalvular aortic insufficiency
6. Tricuspid valve: Mild tricuspid regurgitation. Estimated pulmonary artery
systolic pressures are 39 mmHg
7. When compared to the most recent echocardiogram from 03/26/2020 there has
been no significant change
EKG
Atrial-paced rhythm with prolonged AV conduction
LEFT AXIS DEVIATION
POSSIBLE ANTERIOR INFARCT (CITED ON OR BEFORE 02-DEC-2019)
ABNORMAL ECG
WHEN COMPARED WITH ECG OF 09-JUL-2024 12:49,
NO SIGNIFICANT CHANGE WAS FOUND
CXR: NAD
NO PRIOR hospitalist admission:
ASSESSMENT & PLAN
CAUTI
+ indwelling gilbert with UA concerning for infection. Apparently gilbert was not replaced this admission, will request be replaced now
- agree with IV CFTZ
- E. Coli, pansensitive. Will continue current Rx
Acute HF , HX LVEF 55-60%.
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
- IV Lasix 40 daily
- c/w Carvedilol
- daily IOs , wt
- daily BMP
NICKY ? cardiorenal syndrome plus UTI
HX CKD 3b
- f/u Cr with diuresis
Prx AF
- Atrial-paced rhythm with prolonged AV conduction
- c/w ASA
- c/.w Carvedilol
elevated LFT's
?due to passive congestion, ?related to acute infectious state
AST 297-->501-->1148
ALT 208-->256-->732
will request LIVER US now. Consider GI input. Started to rise prior to admission, doubt related to Rocephin
CAD,
HLD
- on Atorvastatin and ASA. Stop Lipitor due to transaminitis
essential HTN
- on Carvedilol
IDDM
- c/w Lantus
- add ISS low
a1c 6.7% on 05/08/24
Hypothyroid
- on LT4
HX depression
- c/w Sertraline
Morbid obesity
Met with dgt, she is very concerned about etio of transaminitis
DVT Px: SQH
Code: Full
IP TLM
Anticipated Discharge: 24 - 48 hours
Subjective/Interval History
-
Date of Service: July 11, 2024
Awake, alert, denies abd pain. Pt had GB out >25 yrs ago
Objective Data
-
Labs:
Laboratory Results
07/11/24
07:14
WBC 7.9
Hgb 10.9 L
Hct 33.0 L
Plt Count 270
Sodium 138
Potassium 3.7
Chloride 96 L
Carbon Dioxide 34 H
BUN 49 H
Creatinine 1.6 H
Glucose 90
Calcium 8.5
Total Bilirubin 1.5 H
AST 1148 H*
ALT 732 H*
Alkaline Phosphatase 699 H
Vital Signs:
Vital Signs
Temp Pulse Resp BP Pulse Ox
98.2 F 61 20 141/78 96
07/11/24 15:00 07/11/24 15:00 07/11/24 15:00 07/11/24 15:00 07/11/24 15:00
I&O
07/10/24 07/11/24 07/12/24
06:59 06:59 06:59
Intake Total 840 / 840 960 / 960
Output Total 850 / 850 1200 / 1200 1150 / 1150
Balance -850 / -850 -360 / -360 -190 / -190
Review of Systems
-
History Source: Patient and Coordinated Provider
Constitutional: Denies Fever
EENT: Reports No Symptoms Reported
Respiratory: Reports No Symptoms
Cardiac: Reports No Symptoms
Abdomen/GI: Reports No Symptoms
Genitourinary: Reports UTI and Other (chronic gilbert, discussed with dgt (XIMENA) when gilbert was replaced, request replace at this time)
Physical Exam
-
General: Well Developed, Well Nourished, No Apparent Distress and Morbidly Obese
HEENT: Normocephalic, Atraumatic and Moist Mucous Membranes
Respiratory: Clear to Auscultation; Negative Wheezes, Rales or Rhonchi
Cardiac: Regular Rhythm and S1/S2
GI: Soft, Nontender and Nondistended
Musculoskeletal: No Clubbing, No Cyanosis and No Edema
[2024-07-11 19:28] LABS: Glucose - Point of Care 131 mg/dl (70-99)
[2024-07-11 19:30] VITALS: BP 112/58
[2024-07-11] MEDS: TIMOPTIC 0.5% OPHTHALMIC SOLUTION 1 DROP OPHTH (20:43)
[2024-07-11] MEDS: PROTONIX 40 MG PO (20:44)
[2024-07-11] MEDS: MELATONIN 3 MG PO (20:44)
[2024-07-11] MEDS: LANTUS 0.14 UNITS SC (21:07)
[2024-07-11 21:23] LABS: Glucose - Point of Care 183 mg/dl (70-99)
[2024-07-11 23:41] VITALS: BP 135/56
[2024-07-12] VITALS (10 sets, daily range): BP systolic 107–165; BP diastolic 42–84; PULSE 62; O2SAT 97; BMI 43.7
[2024-07-12] MEDS: SYNTHROID 125 MCG PO (05:50)
[2024-07-12 07:52] LABS: Glucose - Point of Care 97 mg/dl (70-99)
[2024-07-12] MEDS: NOVOLOG FLEXPEN-LOW RESISTANCE SC ×3 (07:57→16:07)
[2024-07-12] MEDS: DESENEX/MITRAZOL/ZEASORB 1 APPLIC TOPICAL ×2 (08:27→19:47)
[2024-07-12] MEDS: ASPIR LOW (ENTERIC COATED) 81 MG PO (08:28)
[2024-07-12] MEDS: ZOLOFT 50 MG PO (08:28)
[2024-07-12] MEDS: LOPRESSOR 25 MG PO ×2 (08:28→19:47)
[2024-07-12] MEDS: HEPARIN 5000 UNITS SC ×2 (08:29→19:47)
[2024-07-12] MEDS: LASIX 40 MG IV (08:29)
[2024-07-12] MEDS: TIMOPTIC 0.5% OPHTHALMIC SOLUTION 1 DROP OPHTH ×2 (08:30→19:46)
[2024-07-12 08:36] LABS: % Eosinophils 8.6 % (0-6); % Immature Granulocytes 0.7 % (0-0.5); % Lymphocytes 21.9 % (20.5-51.1); % Neutrophils 58.8 % (42.2-75.2); Absolute Basophils 0.1 10^3/uL (0-0.2); Absolute Eosinophils 0.5 10^3/uL (0-0.7); Absolute Lymphocytes 1.3 10^3/uL (1.2-3.4); Absolute Monocytes 0.5 10^3/uL (0.1-0.6); Absolute Neutrophils 3.5 10^3/uL (1.4-6.5); Hematocrit 34.9 % (37.0-47.0); Hemoglobin 11.6 g/dL (12.0-16.0); Mean Corp Hgb Conc. 33.2 g/dL (33.0-37.0); Mean Corpuscular Hgb 33.8 pg (27.0-31.0); Mean Corpuscular Volume 101.7 fL (81.0-99.0); Mean Platelet Volume 9.6 fL (7.4-10.4); Nucleated Red Blood Cells % 0 %; Platelet Count 271 10^3/uL (130-400); Red Blood Cell Count 3.43 10^6/uL (4.20-5.40); Red Cell Dist. Width 13.8 % (11.5-14.5)
[2024-07-12 09:10] LABS: ALT (SGPT) 491 U/L (0-35); AST (SGOT) 692 U/L (14-36); Albumin 3.1 g/dl (3.5-5.0); Alkaline Phosphatase 658 U/L (38-126); Blood Urea Nitrogen 43 mg/dl (7-17); Calcium 8.6 mg/dl (8.4-10.2); Carbon Dioxide 34 mmol/L (22-30); Chloride 96 mmol/L (98-107); Estimated Creatinine Clearance 29 ml/min; Glucose 98 mg/dl (70-99); Potassium 3.7 mmol/L (3.5-5.1); Sodium 138 mmol/L (135-145); Total Bilirubin 0.9 mg/dl (0.2-1.3); Total Protein 6.3 g/dl (6.3-8.2); eGFR 33.73
--- NOTE | 2024-07-12 10:14 | CM ---
CM reviewed chart, placed call to patients daughterRizwana. CM discussed PT recommendations of SNF. Daughter in agreement for patient to return home, does not wish to go to rehab. Daughter reports they have a dog that does not like people, not
agreeable to VN service, agreeable to outpatient PT. Daughter reports patient appears to be at her baseline, does have a full flight of stairs to bedroom. TT to PT to see if therapy able to work with patient. Daughter reports she will be able to
provide transportation home if discharged over the weekend, will need a script for outpatient PT/OT. CM will continue to follow for all discharge planning needs.
Plan; declining SNF and VN, agreeable to outpatient PT- will need script.
[2024-07-12 12:10] LABS: Glucose - Point of Care 192 mg/dl (70-99)
--- NOTE | 2024-07-12 13:01 | PN.CDI ---
CDI
- -
CDI:
Physician Documentation Request
Admit Date: 07/09/24 18:22
Dear Doctor Randi,
Clinical Indicators:
Patient admitted with acute on chronic HFpEF and CAUTI.
07/11 PN, 'NICKY ? cardiorenal syndrome plus UTI HX CKD 3b'
01/05/24: Cr 1.6 eGFR 31.21
Cr/GFR trend:
07/09/24 07/10/24 07/11/24
12:47 07:12 07:14
Creatinine 1.6 H 1.6 H 1.6 H
eGFR 31.21 31.21 31.21
07/12/24
07:04
Creatinine 1.5 H
eGFR 33.73
Please clarify which of the following accurately represents the patient's renal status:
CKD 3b only
NICKY on CKD 3b
Other, please specify
Criteria for NICKY*
1 Increase in serum creatinine by > or = to 0.3 mg/dL (> or = to 26.5 micromol/L) within 48 hours, OR
2 Increase in serum creatinine to > or = to 1.5 times baseline, which is known or presumed to have occurred within 7 days, OR
3 Urine volume < 0.5 nL/kg/hour for six hours
Stages of Chronic Kidney Disease*
Level Description GFR
G1 Normal or High >90
G2 Mildly decreased 60-89
G3a Mildly to moderately decreased 45-59
G3b Moderately to severely decreased 30-44
G4 Severely decreased 15-29
G5 Kidney failure <15
Use of terms such as suspected, likely, concern for, or probable (associated with a specific diagnosis that is being evaluated, monitored, or treated as if it exists) are acceptable and can be coded in the inpatient setting, when documented at the
time of discharge.
Thank you,
Kristine Ayala RN BSN
CDI Specialist
available via tiger text
Please use your independent medical judgment in providing your response.
*Source: Kidney Disease: Improving Global Outcomes (KDIGO) 2012
[2024-07-12] MEDS: ROCEPHIN 1000 MG IV (15:09)
[2024-07-12] MEDS: STERILE WATER FOR INJECTION 10 ML IV (15:10)
[2024-07-12 16:06] LABS: Glucose - Point of Care 166 mg/dl (70-99)
--- NOTE | 2024-07-12 16:35 | W.PN.HOSP.TC ---
Today's Communication/Plan
-
recheck LFT's
Assessment / Plan
Assessment / Plan
06/03/22 TTE
1. Left ventricle: Normal size and function with mild concentric LVH. No
regional wall motion abnormalities. EF 55-60%.
2. Right ventricle: Normal
3. Atria: Normal
4. Mitral valve: Trace mitral regurgitation
5. Aortic valve: A 23 mm sapient valve is in the aortic position with a mean
gradient of 11 mmHg. Mild paravalvular aortic insufficiency
6. Tricuspid valve: Mild tricuspid regurgitation. Estimated pulmonary artery
systolic pressures are 39 mmHg
7. When compared to the most recent echocardiogram from 03/26/2020 there has
been no significant change
EKG
Atrial-paced rhythm with prolonged AV conduction
LEFT AXIS DEVIATION
POSSIBLE ANTERIOR INFARCT (CITED ON OR BEFORE 02-DEC-2019)
ABNORMAL ECG
WHEN COMPARED WITH ECG OF 09-JUL-2024 12:49,
NO SIGNIFICANT CHANGE WAS FOUND
CXR: NAD
NO PRIOR hospitalist admission:
ASSESSMENT & PLAN
CAUTI
+ indwelling gilbert with UA concerning for infection.
- agree with IV CFTZ
- E. Coli, pansensitive. Will continue current Rx until dc
Acute HF , HX LVEF 55-60%.
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
- IV Lasix 40 daily
- c/w Carvedilol
- daily IOs , wt
- daily BMP
NICKY ? cardiorenal syndrome plus UTI
HX CKD 3b
- f/u Cr with diuresis
Prx AF
- Atrial-paced rhythm with prolonged AV conduction
- c/w ASA
- c/.w Carvedilol
elevated LFT's
?due to passive congestion, ?related to acute infectious state
AST 297-->501-->1148-->692
ALT 208-->256-->732-->491
Liver US was negative
CAD,
HLD
- on Atorvastatin and ASA. Stop Lipitor due to transaminitis
essential HTN
- on Carvedilol
IDDM
- c/w Lantus
- add ISS low
a1c 6.7% on 05/08/24
Hypothyroid
- on LT4
HX depression
- c/w Sertraline
Morbid obesity
Met with dgt, she is very concerned about etio of transaminitis 07/11. Today markedly improved, possible due to shock liver assoc with fever vs passive congestion (I favor shock liver based on marked rapid improvement)
recheck LFT's tomorrow, if continues to improve will plan dc
DVT Px: SQH
Code: Full
IP TLM
Anticipated Discharge: Within 24 hours
Subjective/Interval History
-
Date of Service: July 12, 2024
Awake, alert, generally feels better
Objective Data
-
Labs:
Laboratory Results
07/12/24
07:04
WBC 6.0
Hgb 11.6 L
Hct 34.9 L
Plt Count 271
Sodium 138
Potassium 3.7
Chloride 96 L
Carbon Dioxide 34 H
BUN 43 H
Creatinine 1.5 H
Glucose 98
Calcium 8.6
Total Bilirubin 0.9
AST 692 H*
ALT 491 H
Alkaline Phosphatase 658 H
Vital Signs:
Vital Signs
Temp Pulse Resp BP Pulse Ox
97.8 F 61 16 140/54 96
07/12/24 16:25 07/12/24 16:25 07/12/24 16:25 07/12/24 16:25 07/12/24 16:25
I&O
07/11/24 07/12/24 07/13/24
06:59 06:59 06:59
Intake Total 840 / 840 960 / 960
Output Total 1200 / 1200 1150 / 1150 850 / 850
Balance -360 / -360 -190 / -190 -850 / -850
Review of Systems
-
History Source: Patient and Coordinated Provider
Constitutional: Denies Fever
EENT: Reports No Symptoms Reported
Respiratory: Reports No Symptoms
Cardiac: Reports No Symptoms
Abdomen/GI: Reports No Symptoms
Genitourinary: Reports UTI and Other (chronic gilbert, discussed with dgt (XIMENA) when gilbert was replaced, gilbert replaced 07/11)
Physical Exam
-
General: Well Developed, Well Nourished, No Apparent Distress and Morbidly Obese
HEENT: Normocephalic, Atraumatic and Moist Mucous Membranes
Respiratory: Clear to Auscultation; Negative Wheezes, Rales or Rhonchi
Cardiac: Regular Rhythm and S1/S2
GI: Soft, Nontender and Nondistended
Musculoskeletal: No Clubbing, No Cyanosis and No Edema
[2024-07-12] MEDS: MELATONIN 3 MG PO (19:47)
[2024-07-12] MEDS: PROTONIX 40 MG PO (19:47)
[2024-07-12 21:41] LABS: Glucose - Point of Care 159 mg/dl (70-99)
[2024-07-12] MEDS: LANTUS 0.14 UNITS SC (21:52)
[2024-07-13 03:35] VITALS: BP 117/55
[2024-07-13] MEDS: SYNTHROID 125 MCG PO (05:40)
[2024-07-13 06:00] VITALS: BMI 43.6
[2024-07-13 07:00] VITALS: BP 147/58
[2024-07-13 08:00] LABS: Glucose - Point of Care 97 mg/dl (70-99)
[2024-07-13 08:01] LABS: ALT (SGPT) 347 U/L (0-35); AST (SGOT) 425 U/L (14-36); Albumin 3.2 g/dl (3.5-5.0); Alkaline Phosphatase 639 U/L (38-126); Blood Urea Nitrogen 45 mg/dl (7-17); Calcium 8.6 mg/dl (8.4-10.2); Carbon Dioxide 29 mmol/L (22-30); Chloride 97 mmol/L (98-107); Estimated Creatinine Clearance 31 ml/min; Glucose 104 mg/dl (70-99); Potassium 3.5 mmol/L (3.5-5.1); Sodium 136 mmol/L (135-145); Total Bilirubin 0.8 mg/dl (0.2-1.3); Total Protein 6.3 g/dl (6.3-8.2); eGFR 36.64
[2024-07-13] MEDS: NOVOLOG FLEXPEN-LOW RESISTANCE SC (08:07)
[2024-07-13] MEDS: HEPARIN 5000 UNITS SC (08:57)
[2024-07-13] MEDS: LOPRESSOR 25 MG PO (09:01)
[2024-07-13] MEDS: ZOLOFT 50 MG PO (09:01)
[2024-07-13] MEDS: LASIX 40 MG IV (09:01)
[2024-07-13] MEDS: ASPIR LOW (ENTERIC COATED) 81 MG PO (09:01)
[2024-07-13] MEDS: DESENEX/MITRAZOL/ZEASORB 1 APPLIC TOPICAL (09:01)
[2024-07-13] MEDS: TIMOPTIC 0.5% OPHTHALMIC SOLUTION 1 DROP OPHTH (09:02)
[2024-07-13 11:36] VITALS: BP 159/71
[2024-07-13 11:52] LABS: Glucose - Point of Care 169 mg/dl (70-99)
--- NOTE | 2024-07-13 12:33 | W.PN.HOSP.TC ---
Today's Communication/Plan
-
dc now
Assessment / Plan
Assessment / Plan
06/03/22 TTE
1. Left ventricle: Normal size and function with mild concentric LVH. No
regional wall motion abnormalities. EF 55-60%.
2. Right ventricle: Normal
3. Atria: Normal
4. Mitral valve: Trace mitral regurgitation
5. Aortic valve: A 23 mm sapient valve is in the aortic position with a mean
gradient of 11 mmHg. Mild paravalvular aortic insufficiency
6. Tricuspid valve: Mild tricuspid regurgitation. Estimated pulmonary artery
systolic pressures are 39 mmHg
7. When compared to the most recent echocardiogram from 03/26/2020 there has
been no significant change
EKG
Atrial-paced rhythm with prolonged AV conduction
LEFT AXIS DEVIATION
POSSIBLE ANTERIOR INFARCT (CITED ON OR BEFORE 02-DEC-2019)
ABNORMAL ECG
WHEN COMPARED WITH ECG OF 09-JUL-2024 12:49,
NO SIGNIFICANT CHANGE WAS FOUND
CXR: NAD
NO PRIOR hospitalist admission:
ASSESSMENT & PLAN
CAUTI
+ indwelling gilbert with UA concerning for infection.
- agree with IV CFTZ
- E. Coli, pansensitive. Will change to oral at time of dc
Acute HF , HX LVEF 55-60%.
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
- resume preadmit meds
- c/w Carvedilol
- daily IOs , wt
- daily BMP
HX CKD 3b
- f/u Cr with diuresis
Prx AF
- Atrial-paced rhythm with prolonged AV conduction
- c/w ASA
- c/.w Carvedilol
elevated LFT's
?due to passive congestion, ?related to acute infectious state
AST 297-->501-->1148-->692-->425
ALT 208-->256-->732-->491-->347
Liver US was negative
CAD,
HLD
- on Atorvastatin and ASA. Resume Lipitor after recheck by PCP
essential HTN
- on Carvedilol
IDDM
- c/w Lantus
- add ISS low
a1c 6.7% on 05/08/24
Hypothyroid
- on LT4
HX depression
- c/w Sertraline
Morbid obesity
Met with dgt, she is very concerned about etio of transaminitis 07/11. Today markedly improved, possible due to shock liver assoc with fever vs passive congestion (I favor shock liver based on marked rapid improvement). Needs to be followed post dc
DVT Px: SQH
Code: Full
IP TLM
dc now
More than 30 minutes spent in discharge including
Final examination of the patient
Summarizing hospital stay
Instructions for continuing care to all relevant caregivers
Preparation of discharge records, prescriptions, and referral forms
Total time spent (in minutes): 45
Anticipated Discharge: Today
Subjective/Interval History
-
Date of Service: July 13, 2024
Feels well, anxiously awaiting dc
Objective Data
-
Labs:
Laboratory Results
07/13/24
06:46
Sodium 136
Potassium 3.5
Chloride 97 L
Carbon Dioxide 29
BUN 45 H
Creatinine 1.4 H
Glucose 104 H
Calcium 8.6
Total Bilirubin 0.8
AST 425 H
ALT 347 H
Alkaline Phosphatase 639 H
Vital Signs:
Vital Signs
Temp Pulse Resp BP Pulse Ox
97.5 F 64 18 159/71 97
07/13/24 11:36 07/13/24 11:36 07/13/24 11:36 07/13/24 11:36 07/13/24 11:36
I&O
07/12/24 07/13/24 07/14/24
06:59 06:59 06:59
Intake Total 960 / 960 840 / 840
Output Total 1150 / 1150 2250 / 2250
Balance -190 / -190 -1410 / -1410
Review of Systems
-
History Source: Patient and Coordinated Provider
Constitutional: Denies Fever
EENT: Reports No Symptoms Reported
Respiratory: Reports No Symptoms
Cardiac: Reports No Symptoms
Abdomen/GI: Reports No Symptoms
Genitourinary: Reports UTI and Other (chronic gilbert, discussed with dgt (XIMENA) when gilbert was replaced, gilbert replaced 07/11)
Physical Exam
-
General: Well Developed, Well Nourished, No Apparent Distress and Morbidly Obese
HEENT: Normocephalic, Atraumatic and Moist Mucous Membranes
Respiratory: Clear to Auscultation; Negative Wheezes, Rales or Rhonchi
Cardiac: Regular Rhythm and S1/S2
GI: Soft, Nontender and Nondistended
Musculoskeletal: No Clubbing, No Cyanosis and No Edema
[2024-07-13] MEDS: NOVOLOG FLEXPEN-LOW RESISTANCE 1 UNITS SC (12:35)
--- NOTE | 2024-07-13 12:48 | W.DS.TRANS ---
DC Summary - Log Buncher
-
Discharge Instructions:
Sleep Apnea Risk Intermediate
Discharge Diagnosis/Procedures CAUTI
Diet Diabetic, Carb Controlled
Activity No strenuous activity
Driving Restrictions Not until seen by your Dr
Bathing Restrictions None
Blood Work CBC, CMP in 1-2 weeks
Instructions: *PCP/Other Human Relations Professor Heart Failure Instructions
Stand-Alone Forms:
Changes to Home Medications: Yes
Discharge Medications:
DC Medications w/original date entered in [employer]
ascorbic acid (vitamin C) 500 mg tablet (Vitamin C) 500 mg PO DAILY Supplement 04/30/15
cholecalciferol (vitamin D3) 50 mcg (2,000 unit) tablet 2,000 unit PO DAILY Supplement 04/30/15
polyethylene glycol 3350 17 gram oral powder packet 17 grams PO DAILYPRN PRN constipation 04/30/15
ferrous sulfate 325 mg (65 mg iron) tablet (iron) 650 mg PO DAILY Supplement 12/10/15
acetaminophen 500 mg tablet (Tylenol Extra Strength) 500 mg PO DAILYPRN PRN mild pain 09/25/19
coenzyme Q10 200 mg capsule (Co Q-10) 200 mg PO DAILY Supplement 11/14/19
insulin aspart U-100 100 unit/mL (3 mL) subcutaneous pen (Novolog FlexPen U-100 Insulin aspart) 0 sliding scale dose SC AC Diabetes 11/14/19
insulin glargine 100 unit/mL (3 mL) subcutaneous pen (Basaglar KwikPen U-100 Insulin) 14 unit SQ HS Diabetes 11/14/19
potassium 99 mg tablet 99 mg PO DAILY Supplement ##0 11/14/19
Lactobac no.2-Bifidobac no.1-S. thermo 112.5 billion cell capsule (Visbiome) 1 cap PO DAILY Supplement 07/09/24
aspirin 81 mg tablet,delayed release 81 mg PO DAILY Blood Clot Prevention/Tx 07/09/24
cyanocobalamin (vitamin B-12) 1,000 mcg tablet 1,000 mcg PO DAILY Supplement 07/09/24
docusate sodium 100 mg capsule (Colace) 100 mg PO DAILYPRN PRN constipation 07/09/24
furosemide 80 mg tablet 80 mg PO HS Fluid Retention/Swelling 07/09/24
levothyroxine 125 mcg tablet 125 mcg PO DAILY Thyroid 07/09/24
magnesium oxide 300 mg PO HS Supplement 07/09/24
melatonin 3 mg tablet 3 mg PO HS Sleep 07/09/24
metoprolol tartrate 25 mg tablet 25 mg PO BID Blood Pressure 07/09/24
pantoprazole 40 mg tablet,delayed release 40 mg PO HS Gastrointestinal Issue 07/09/24
sertraline 50 mg tablet 50 mg PO DAILY Depression 07/09/24
therapeutic multivitamin 1 tab PO DAILY Supplement 07/09/24
timolol 0.5 % eye drops 1 drp BOTH EYES BID Eye Condition 07/09/24
vitamins A,C,W-zqsh-scuzxv 4,296 mcg-226 mg-90 mg capsule (PreserVision AREDS) 1 cap PO BID Supplement 07/09/24
cefuroxime axetil 500 mg tablet 500 mg PO BID 7 days #14 tabs 07/13/24
Home Medication Changes
Ceftin for next 7 days
stop Lipitor until LFT's rechecked, then decided if should be resumed
Pending Results: No
--- NOTE | 2024-07-13 13:12 | CM ---
manager country reviewed patient's chart and patient has been cleared for discharge, no needs.
Plan; Home no needs.
== END 2024-07-13 13:38 | disposition home or self-care (01) | DRG 291 ==
LOC: 4 WEST ACU 18:22
PROVIDERS: Physician Assistant; ADMITTING PHYSICIAN Internal Medicine; ATTENDING PHYSICIAN Internal Medicine; EMERGENCY PHYSICIAN Emergency Medicine; FAMILY PHYSICIAN Family Medicine
DX: I13.0 Hypertensive heart and chronic kidney disease with heart failure and stage 1 through stage 4 chronic kidney disease, or unspecified chronic kidney disease (principal); I50.33 Acute on chronic diastolic (congestive) heart failure; N17.9 Acute kidney failure, unspecified; N39.0 Urinary tract infection, site not specified; T83.518A Infection and inflammatory reaction due to other urinary catheter, initial encounter; Z68.41 Body mass index [BMI] 40.0-44.9, adult; Z87.891 Personal history of nicotine dependence; Y84.6 Urinary catheterization as the cause of abnormal reaction of the patient, or of later complication, without mention of misadventure at the time of the procedure; I25.10 Atherosclerotic heart disease of native coronary artery without angina pectoris; N18.32 Chronic kidney disease, stage 3b; E11.22 Type 2 diabetes mellitus with diabetic chronic kidney disease; Z79.4 Long term (current) use of insulin; E03.9 Hypothyroidism, unspecified; F32.A Depression, unspecified; E66.01 Morbid (severe) obesity due to excess calories; E78.00 Pure hypercholesterolemia, unspecified; I48.0 Paroxysmal atrial fibrillation
CPT/HCPCS: 71046; 76700; 80053; 81003; 81015; 82962; 83880; 84484; 85025; 85027; 87077; 87086; 87186; 87502; 87811; 93005; 96374; 96375; 97116; 97163; 97166; 97530; 99285

== ENCOUNTER → 2024-07-25 09:50 | Outpatient (REF) | payer MEDICARE, SELFPAY ==
[2024-07-25 10:34] LABS: % Basophils 1.5 % (0-2); % Eosinophils 5.6 % (0-6); % Immature Granulocytes 0.4 % (0-0.5); % Lymphocytes 19.9 % (20.5-51.1); % Monocytes 7.6 % (1.7-9.3); Absolute Basophils 0.1 10^3/uL (0-0.2); Absolute Eosinophils 0.4 10^3/uL (0-0.7); Absolute Lymphocytes 1.3 10^3/uL (1.2-3.4); Absolute Monocytes 0.5 10^3/uL (0.1-0.6); Absolute Neutrophils 4.4 10^3/uL (1.4-6.5); Hematocrit 39.2 % (37.0-47.0); Hemoglobin 12.6 g/dL (12.0-16.0); Mean Corp Hgb Conc. 32.1 g/dL (33.0-37.0); Mean Corpuscular Hgb 33.6 pg (27.0-31.0); Mean Corpuscular Volume 104.5 fL (81.0-99.0); Nucleated Red Blood Cells % 0 %; Platelet Count 266 10^3/uL (130-400); Red Blood Cell Count 3.75 10^6/uL (4.20-5.40); Red Cell Dist. Width 14.5 % (11.5-14.5); White Blood Cell Count 6.7 10^3/uL (4.8-10.8)
[2024-07-25 11:04] LABS: ALT (SGPT) 85 U/L (0-35); AST (SGOT) 71 U/L (14-36); Albumin 3.8 g/dl (3.5-5.0); Alkaline Phosphatase 394 U/L (38-126); Blood Urea Nitrogen 34 mg/dl (7-17); Calcium 9.1 mg/dl (8.4-10.2); Carbon Dioxide 33 mmol/L (22-30); Chloride 97 mmol/L (98-107); Glucose 100 mg/dl (70-99); Potassium 4.5 mmol/L (3.5-5.1); Sodium 139 mmol/L (135-145); Total Bilirubin 0.8 mg/dl (0.2-1.3); eGFR 31.21
== END ==
LOC: REG 09:50
PROVIDERS: ATTENDING PHYSICIAN Family Medicine
DX: D53.9 Nutritional anemia, unspecified (principal); R74.8 Abnormal levels of other serum enzymes; E03.9 Hypothyroidism, unspecified
CPT/HCPCS: 36415; 80053; 84443; 85025

== ENCOUNTER → 2024-09-20 10:33 | Outpatient (REF) | payer MEDICARE, SELFPAY | LOC: CLAB 10:33 | PROVIDERS: ATTENDING PHYSICIAN Specialist | DX: N39.0 Urinary tract infection, site not specified (principal) | CPT/HCPCS: 87077; 87086 ==

== ENCOUNTER → 2024-10-14 10:20 | Outpatient (REF) | payer MEDICARE, SELFPAY ==
[2024-10-14 11:42] LABS: Hematocrit 35.6 % (37.0-47.0); Hemoglobin 11.7 g/dL (12.0-16.0); Mean Corp Hgb Conc. 32.9 g/dL (33.0-37.0); Mean Corpuscular Hgb 33.9 pg (27.0-31.0); Mean Corpuscular Volume 103.2 fL (81.0-99.0); Mean Platelet Volume 9.6 fL (7.4-10.4); Platelet Count 281 10^3/uL (130-400); Red Blood Cell Count 3.45 10^6/uL (4.20-5.40); Red Cell Dist. Width 15.8 % (11.5-14.5); White Blood Cell Count 6.2 10^3/uL (4.8-10.8)
[2024-10-14 12:44] LABS: NT-proBNP 1730 pg/ml
[2024-10-14 15:33] LABS: Blood Urea Nitrogen 49 mg/dl (7-17); Calcium 9.2 mg/dl (8.4-10.2); Carbon Dioxide 28 mmol/L (22-30); Chloride 101 mmol/L (98-107); Glucose 113 mg/dl (70-99); Potassium 4.1 mmol/L (3.5-5.1); Sodium 140 mmol/L (135-145); eGFR 25.24
== END ==
LOC: REG 10:20
PROVIDERS: ATTENDING PHYSICIAN Physician Assistant Medical; FAMILY PHYSICIAN Family Medicine
DX: R06.02 Shortness of breath (principal); I50.32 Chronic diastolic (congestive) heart failure
CPT/HCPCS: 36415; 80048; 83880; 85027

== ENCOUNTER → 2024-10-21 10:36 | Outpatient (REF) | payer MEDICARE, SELFPAY ==
[2024-10-21 12:43] LABS: Blood Urea Nitrogen 36 mg/dl (7-17); Calcium 8.8 mg/dl (8.4-10.2); Carbon Dioxide 28 mmol/L (22-30); Chloride 100 mmol/L (98-107); Glucose 167 mg/dl (70-99); Potassium 4.5 mmol/L (3.5-5.1); Sodium 138 mmol/L (135-145); eGFR 31.02
== END ==
LOC: REG 10:36
PROVIDERS: ATTENDING PHYSICIAN Internal Medicine Cardiovascular Disease; FAMILY PHYSICIAN Family Medicine
DX: N17.9 Acute kidney failure, unspecified (principal)
CPT/HCPCS: 36415; 80048

== ENCOUNTER → 2024-10-31 12:41 | Outpatient (REF) | payer MEDICARE, SELFPAY ==
--- NOTE | 2024-10-31 14:18 | CARDSERVDEF ---
Echocardiogram with Definity completed after protocol screening completed. Allergies verified.
Patent IV site: _Right forearm 22 G PC inserted by Min-IV team____
IV site flushed with 0.9% NaCl pre and post administration.
Diluted bolus method utilized to enhance visualization of ventricular story.
Total volume given: __6__ mL
Patient tolerated all procedures well without complications.
Heplock D/C ed at 1415. site clear, no redness,no edema. Pressure held for few minutes as pt on anticoagulants. No bleeding,2x2 applied and taped. Pt offers no complaints.
== END ==
LOC: RCS 12:41
PROVIDERS: ATTENDING PHYSICIAN Physician Assistant Medical; FAMILY PHYSICIAN Family Medicine
DX: R06.02 Shortness of breath (principal); I50.32 Chronic diastolic (congestive) heart failure
CPT/HCPCS: 93306; Q9957

== ENCOUNTER → 2024-12-11 09:09 | Outpatient (REF) | payer MEDICARE, SELFPAY ==
[2024-12-11 10:52] LABS: Glycohemoglobin (HgbA1c) 5.6 % (4.0-5.6)
[2024-12-11 11:00] LABS: NT-proBNP 998 pg/ml
[2024-12-11 11:29] LABS: TSH 1.25 uIU/ml (0.47-4.68)
[2024-12-11 13:59] LABS: ALT (SGPT) 23 U/L (0-35); AST (SGOT) 34 U/L (14-36); Albumin 3.3 g/dl (3.5-5.0); Alkaline Phosphatase 137 U/L (38-126); Blood Urea Nitrogen 23 mg/dl (7-17); Calcium 8.8 mg/dl (8.4-10.2); Carbon Dioxide 30 mmol/L (22-30); Chloride 106 mmol/L (98-107); Glucose 95 mg/dl (70-99); HDL Cholesterol 38 mg/dl; LDL Cholesterol, Calculated 169 mg/dl; Potassium 4.2 mmol/L (3.5-5.1); Sodium 141 mmol/L (135-145); Total Bilirubin 0.7 mg/dl (0.2-1.3); Total Cholesterol 256 mg/dl (50-199); Total Protein 6.3 g/dl (6.3-8.2); Triglyceride 245 mg/dl (10-149); Very Low Density Lipoprotein 49 mg/dl (0-30); eGFR 36.41
== END ==
LOC: REG 09:09
PROVIDERS: ATTENDING PHYSICIAN Internal Medicine Cardiovascular Disease; FAMILY PHYSICIAN Family Medicine
DX: I10 Essential (primary) hypertension (principal); E11.22 Type 2 diabetes mellitus with diabetic chronic kidney disease; R74.01 Elevation of levels of liver transaminase levels; E03.9 Hypothyroidism, unspecified; D63.8 Anemia in other chronic diseases classified elsewhere
CPT/HCPCS: 36415; 80053; 80061; 83036; 83880; 84443

== ENCOUNTER → 2025-06-04 09:19 | Outpatient (REF) | payer MEDICARE, SELFPAY ==
[2025-06-04 10:58] LABS: Hematocrit 41.8 % (37.0-47.0); Hemoglobin 13.7 g/dL (12.0-16.0); Mean Corp Hgb Conc. 32.8 g/dL (33.0-37.0); Mean Corpuscular Volume 107.2 fL (81.0-99.0); Nucleated Red Blood Cells % 0 %; Platelet Count 206 10^3/uL (130-400); Red Cell Dist. Width 12.8 % (11.5-14.5)
[2025-06-04 11:20] LABS: ALT (SGPT) 20 U/L (0-35); AST (SGOT) 34 U/L (14-36); Albumin 3.8 g/dl (3.5-5.0); Alkaline Phosphatase 86 U/L (38-126); Blood Urea Nitrogen 29 mg/dl (7-17); Calcium 9.1 mg/dl (8.4-10.2); Carbon Dioxide 36 mmol/L (22-30); Chloride 98 mmol/L (98-107); Glucose 107 mg/dl (70-99); HDL Cholesterol 34 mg/dl; LDL Cholesterol, Calculated 166 mg/dl; Potassium 3.9 mmol/L (3.5-5.1); Sodium 138 mmol/L (135-145); Total Protein 7.1 g/dl (6.3-8.2); Very Low Density Lipoprotein 50 mg/dl (0-30); eGFR 28.84
[2025-06-04 11:48] LABS: TSH 2.08 uIU/ml (0.47-4.68)
[2025-06-04 13:21] LABS: Glycohemoglobin (HgbA1c) 6.0 % (4.0-5.9)
== END ==
LOC: REG 09:19
PROVIDERS: ATTENDING PHYSICIAN Family Medicine
DX: E11.22 Type 2 diabetes mellitus with diabetic chronic kidney disease (principal); D75.89 Other specified diseases of blood and blood-forming organs; E03.9 Hypothyroidism, unspecified; I25.10 Atherosclerotic heart disease of native coronary artery without angina pectoris
CPT/HCPCS: 36415; 80053; 80061; 83036; 84443; 85025